=== PATIENT | male | born 1990 | race African-American/Black ===

== ENCOUNTER 2016-05-01 11:59 | Emergency (ER) | payer SELFPAY ==
[2016-05-01 12:07] VITALS: BP 130/64
[2016-05-01] MEDS ORDERED: IBUPROFEN 600 MG TABLET PO ONE (12:17)
[2016-05-01] MEDS ORDERED: IBUPROFEN 600 MG TABLET ONE (12:21)
--- NOTE | 2016-05-01 12:23 | ERNOTE ---
Medical Problem HPI - General Chief Complaint: Flu Symptoms Time Seen by Provider: 05/01/16 12:12 Source: patient Exam Limitations: no limitations - Immun/Allergies/Home Medications Immunizations: IMMUNIZATION HX Immunizations Up to Date No History of Influenza Vaccine No Allergies/Adverse Reactions: Allergies No Known Allergies Allergy (Unverified 05/01/16 12:07) Home Medications: HOME MEDICATIONS Amoxicillin Trihydrate [Amoxil] 500 mg PO TID #30 cap 05/01/16 [Last Taken Unknown] Ibuprofen [Motrin] 600 mg PO Q6H PRN #40 tab 05/01/16 [Last Taken Unknown] - History of Present History Narrative: Patient has had URI symptoms for three days, sore throat, cough, fever, aches, runny nose. He has been using OTC cold medications with some relieve, no known exposure, but there is a high incidence of influenza and strep in the community Review of Systems - Review of Systems Constitutional: Present: fever, chills. Absent: recent illness ENT: Present: nose congestion, nasal drainage, sore throat. Absent: ear pain, ear discharge Respiratory: Present: cough. Absent: shortness of breath Cardiology: Absent: chest pain Gastrointestinal/Abdominal: Absent: nausea, vomiting, abdominal pain Genitourinary: Present: no symptoms reported Musculoskeletal: Present: muscle pain - generalized Neurological: Absent: headache - Patient's Past Medical History Patient History - Medical: No pertinent hx Patient History - Cardiac/Respiratory: No pertinent hx Patient History - Cancer: No Hx of Cancer Patient History - Surgical Procedures: No surgical history - Social History Living Situations: home Psych History: No pertinent hx Smoking Status: Current every day smoker Alcohol Use: occasionally Drug Use: none - Immunizations Immunizations Up to Date: No History of Influenza Vaccine: No Physical Exam - Physical Exam General Appearance: Present: wd/wn, alert, no apparent distress Eye Exam: Normal inspection: bilateral, PERRL: bilateral Ears, Nose, Throat: Present: normal ENT inspection, normal pharynx Neck: Present: normal inspection, nontender, lymphadenopathy (R). Absent: lymphadenopathy (L) Respiratory: Present: no respiratory distress, normal breath sounds, no accessory muscle use, lungs clear Cardiovascular/Chest: Present: regular rate, rhythm, no murmur Gastrointestinal/Abdominal: Present: nontender Neurological Exam: Present: alert, normal mood/affect Skin Exam: Present: normal color, warm/dry ED Progress - Results and Orders Patient's Lab Results:: I have reviewed the patient's lab results. - Vital Signs Patient's Vital Signs:: I have reviewed the patient's vital signs. Vital Signs: Vital Signs 05/01/16 12:04 Temperature 38.2 C H Pulse Rate 109 H Respiratory 16 Rate Blood Pressure 130/64 O2 Sat by Pulse 97 Oximetry - Progress/Reassessment Chief Complaint: Flu Symptoms Progress Note-Subjective: 05/01/16 12:30 discussed results and treatment plan with patient and girlfriend Departure - Departure Clinical Impression: Strep pharyngitis Disposition: Home self-care Condition: Good Instructions: Strep Throat, [id number] Referrals: Ivonne Dennis MD [Staff Physician] - (as needed) Prescriptions: Amoxicillin Trihydrate [Amoxil] 500 mg PO TID #30 cap Ibuprofen [Motrin] 600 mg PO Q6H PRN #40 tab PRN Reason: Pain
== END 2016-05-01 12:40 | disposition home or self-care (01) ==
LOC: ER 11:59
DX: J02.0 Streptococcal pharyngitis (principal); F17.210 Nicotine dependence, cigarettes, uncomplicated